=== PATIENT | male | born 1960 ===

== ENCOUNTER 2017-11-23 05:50 | Inpatient (IN) | payer OTHER ==
[~2017-11-23] VITALS: Ht 177.8 cm; Wt 73.5 kg
[2017-11-23] VITALS (12 sets, daily range): BP systolic 56–119; BP diastolic 31–76
[~2017-11-23 05:50] MED LIST: Dexamethasone 20mg/5ml IVP ONE; ceFAZolin sod 1 GM in NS 55 ML IVPB ONE
[2017-11-23] MEDS ORDERED: PROSCAR5 MG ORAL (06:31)
[2017-11-23] MEDS ORDERED: EPINEPHrine 1mg/1ml Amp ONE (06:38)
[2017-11-23] MEDS ORDERED: Vancomycin 1gm inj IVPB ONE (06:38)
[2017-11-23] MEDS ORDERED: Lidocaine 1% Plain 30 ml INJ ONE ×3 (06:39→09:02)
[2017-11-23] MEDS ORDERED: Thrombin 5000 units TOPIC ONE (06:39)
[2017-11-23] MEDS ORDERED: Bupivacaine 0.5% Inj 30 ml vial INJ ONE (06:39)
[2017-11-23] MEDS ORDERED: Bacitracin 50000 Units Vial ONE (06:39)
[2017-11-23] MEDS ORDERED: Gelfoam Size TOPIC ONE (06:39)
[2017-11-23] MEDS ORDERED: LR 1000ml 1,000 ML IVLG SCH (06:54)
--- NOTE | 2017-11-23 06:56 | Anethesia Preoperative Eval ---
Anesthesia Pre-op PMH/ROS General Date of Evaluation: Nov 23, 2017 Time of Evaluation: 07:01 Anesthesiologist: Juan M ASA Score: ASA 2 Mallampati Score Class I : Soft palate, uvula, fauces, pillars visible Class II: Soft palate, uvula, fauces visible Class III: Soft palate, base of uvula visible Class IV: Only hard plate visible Mallampati Classification: Class I Surgeon: Allyson Diagnosis: Back Pain Surgical Procedure: L5-S1 Microdiscectomy, Decompression Anesthesia History: none Social History: smoking Family History: no anesthesia problems Allergies: Coded Allergies: No Known Allergies (Unverified , 11/23/17) Medications: see eMAR Past Medical History Musculoskeletal/Integumentary: Reports: OA PSxH Narrative: L Shoulder Sx, Femur Sx, Quad Tendon Sx Anesthesia Pre-op Phys. Exam Physician Exam Last Vital Signs Date Time Temp Pulse Resp B/P (MAP) Pulse Ox O2 Delivery O2 Flow Rate FiO2 11/23/17 06:41 Room Air 11/23/17 06:32 97.9 45 18 119/74 (89) 99 97.9 Constitutional: NAD Neurologic: CN 2-12 intact Cardiovascular: RRR Respiratory: CTA Gastrointestinal: S/NT/ND Airway Exam Mallampati Score: Class II MO: full ROM: full Teeth: intact Anesthesia Pre-op A/P Risk Assessment & Plan Assessment: ASA 2 Plan: GA, BIS, GlideScope Status Change Before Surgery: No Pre-Antibiotics Dru Gram Ancef IV Given Within 1 Hr of Incision: Yes Time Given: 07:31 Dmitri Mcgowan MD Nov 23, 2017 06:56
[2017-11-23] MEDS ORDERED: Sodium Chloride 10ml vial INJ ONE (06:57)
[2017-11-23] MEDS ORDERED: Lidocaine 1% MPF 10mg/ml 5ml ONE (06:57)
[2017-11-23] MEDS ORDERED: Labetalol 5mg/ml 20ml vial IV PRN (07:00)
[2017-11-23] MEDS ORDERED: Norco 5mg/325mg tab ORAL PRN (07:00)
[2017-11-23] MEDS ORDERED: LORazepam Inj 2mg/ml 1ml IV PRN (07:00)
[2017-11-23] MEDS ORDERED: Neostigmine 1mg/ml 10ml Inj ONE (07:00)
[2017-11-23] MEDS ORDERED: Acetaminophen (Non formulary) 100 ML IV ONE (07:00)
[2017-11-23] MEDS ORDERED: Sterile Water Irrig 1000ml IRRIG ONE (07:00)
[2017-11-23] MEDS ORDERED: HYDROcodone/Acetamin 7.5/325 tab ORAL PRN (07:00)
[2017-11-23] MEDS ORDERED: Midazolam 2mg/2ml Inj IVP PRN (07:00)
[2017-11-23] MEDS ORDERED: oxyCODONE HCL/Acetaminophen 5/325mg ORAL PRN (07:00)
[2017-11-23] MEDS ORDERED: Hydromorphone 0.5mg/0.5ml inj IVP PRN (07:00)
[2017-11-23] MEDS ORDERED: DiphenhydrAMINE 50mg/ml Inj IVP PRN (07:00)
[2017-11-23] MEDS ORDERED: Metoclopramide 10mg/2ml Inj IVP PRN (07:00)
[2017-11-23] MEDS ORDERED: Propofol 1,000mg/ 100ml btl IV ONE (07:00)
[2017-11-23] MEDS ORDERED: Zemuron 50mg/5ml Inj IV ONE (07:00)
[2017-11-23] MEDS ORDERED: fentaNYL 100 mcg/2 mL IV PRN (07:00)
[2017-11-23] MEDS ORDERED: Glycopyrrolate 0.2mg/ml 1ml Vial ONE ×3 (07:00→09:16)
[2017-11-23] MEDS ORDERED: LR 1000ml ONE (07:00)
[2017-11-23] MEDS ORDERED: Ketorolac 30mg Inj IV PRN ×2 (07:00)
[2017-11-23] MEDS ORDERED: Atropine Inj 1mg/10ml Syr IV PRN (07:00)
--- NOTE | 2017-11-23 07:03 | Pre-Procedure Note/Attestation ---
Pre-Procedure Note/Attestation Complete Prior to Procedure Planned Procedure: not applicable Procedure Narrative: L5-S1 microdiscectomy Indications for Procedure Pre-Operative Diagnosis: Trauma L5-S1 herniated nucleus pulposis, radiculopathy, pain, neurological deficit Attestation I attest that I discussed the nature of the procedure; its benefits; risks and complications; and alternatives (and the risks and benefits of such alternatives ), prior to the procedure, with the patient (or the patient's legal mechanical service representative). I attest that, if there was a reasonable possibility of needing a blood transfusion, the patient (or the patient's legal mechanical service representative) was given the [place] Department [employer] standardized written summary, pursuant to the [place] Blood Safety Act ([place] Health and Safety Code # 1645, as amended). I attest that I re-evaluated the patient just prior to the surgery and that there has been no change in the patient's H&P, except as documented below: ELISEO ARELLANO Nov 23, 2017 07:03
--- NOTE | 2017-11-23 07:46 | Immediate Post-Op Evaluation ---
Immediate Post-Op Evalulation Immediate Post-Op Evalulation Procedure: L5-S1 Microdiscectomy, Decompression Date of Evaluation: Nov 23, 2017 Time of Evaluation: 10:00 IV Fluids: 700 LR Blood Products: 0 Estimated Blood Loss: 10 Urinary Output: 0 Blood Pressure Systolic: 99 Blood Pressure Diastolic: 66 Pulse Rate: 92 Respiratory Rate: 16 O2 Sat by Pulse Oximetry: 100 Temperature (Fahrenheit): 98 Pain Score (1-10): 3 Nausea: No Vomiting: No Complications 0 Patient Status: awake, reacts, patent, extubated, none Hydration Status: adequate Dru Gram Ancef IV Given Within 1 Hr of Incision: Yes Time Given: 07:31 Dmitri Mcgowan MD Nov 23, 2017 07:46
[2017-11-23] MEDS ORDERED: NS Irrig 1000ml IRRIG ONE (08:30)
--- NOTE | 2017-11-23 09:23 | Brief Operative Note ---
Immediate Post Operative Note Operative Note Pre-op Diagnosis: Trauma L5-S1 herniated nucleus pulposis, radiculopathy, pain, neurological deficit Procedure: L5-S1 microdiscectomy Local Xray High power dissection Post-op Diagnosis: same as pre-op Findings: consistent w/pre-op dx studies Surgeon: Allyson JARAMILLO Field Crop Grower: Verito MUNGUIA Anesthesiologist: Juan M JARAMILLO Anesthesia: general Specimen: yes Complications: none Condition: stable Fluids: anesthesia Estimated Blood Loss: minimal Drains: none Implant(s) used?: No ELISEO ARELLANO Nov 23, 2017 09:23
[2017-11-23] MEDS ORDERED: fentaNYL 100 mcg/2 mL IV ONE (09:24)
[2017-11-23] MEDS ORDERED: Naloxone 0.4mg/ml Inj IVP PRN (09:30)
--- NOTE | 2017-11-23 10:54 | Diagnostic Imaging Report ---
Indication: Pain, intraoperative Technique: Intraoperative imaging Comparison: none Findings: Intraoperative images demonstrate needle posterior to what is presumably L5, intervertebral tool posterior to what is presumably L5-S1 Impression: Intraoperative imaging, as described
[2017-11-23] MEDS ORDERED: D5 1/2NS 1,000 ML IV SCH (12:00)
--- NOTE | 2017-11-23 13:30 | Operative Note - Dictated ---
DATE OF OPERATION: 11/23/2017 9:26 a.m. SURGEON: Rboles Valadez, PhD, M.D. CREDIT PORTFOLIO ADVISOR: EZRA Vazquez. ANESTHESIOLOGIST: Dmitri Mcgowan M.D. ANESTHESIA: General with intubation. 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 POSTOPERATIVE DIAGNOSIS: L5-S1 posttraumatic herniated nucleus polyposis with radiculopathy/neurologic deficit. OPERATIVE PROCEDURE: L5-S1 microdiscectomy. High-power magnification dissection. Local anesthetic applied by surgeon. Intraoperative x-rays interpreted by surgeon. COMPLICATIONS: None. SPECIMEN: Disc fragments to pathology. POSTOPERATIVE CONDITION: Good/stable. DESCRIPTION OF PROCEDURE: The patient was brought to the operating room, supine position, general anesthesia with intubation, carefully turned prone position, lumbodorsal spine sterilely prepped. Spinal needle under sterile conditions, placed into the subcutaneous tissue and a cross-table image obtained under sterile conditions, interpreted by surgeon, demonstrating the correct level for incision placement. Position marked. Needle removed. Back re-sterilely prepped and draped free in usual sterile fashion. A longitudinal midline incision of the appropriate interval was sharply placed through dermis and epidermis. Electrocautery dissection through the subcutaneous tissue to the level of lumbodorsal fascia. Lumbodorsal fascia incised right of midline only. Subperiosteal dissection over the lamina. Marker placed, cross-table imaging obtained. Under sterile conditions, interpreted by surgeons and marked appropriately for correct level for further dissection. Retractors placed. Hemilaminotomy right inferior L5 superior S1. Dissection was carried lateral to the dural tube, nerve root sheath. No dural tears or leaks at anytime during the procedure. Hemilaminotomy performed with Midas Jose M bur dissection under high-power magnification. Ligament flavum excision. Dissection carried lateral to the dural tube identification of the disc space. HNP identified. Annulotomy followed microdiscectomy not exceeding 11 mm posterior anterior, medial lateral, and lateral medial. No dural tears or leaks at anytime. Irrigation of disc space, no further fragments. Fragments previously removed to pathology. Wound irrigated with antibiotic-containing saline. Minimal epidural bleeding controlled with bipolar electrocauterization. Wound re-irrigated with antibiotic-containing saline. FloSeal applied. Sequential reapproximation with Vicryl suture material, lumbodorsal fascia, subcutaneous tissue, running subcuticular closure of dermis and epidermis. Local anesthetic 1% lidocaine with epinephrine. Bilateral and lateral aspects of the wound with local anesthetic. Surgical strips applied followed with sterile bandage, maintained in place with tape. The patient turned from the prone to supine position on the transport bed where he was awakened, extubated in the operating room, transported to postop recovery in good stable condition. Robles Valadez M.D. DR: MARIE JOB#: [id number] CC:
[2017-11-23] MEDS ORDERED: Tamsulosin 0.4mg cap ORAL ONE (13:59)
[2017-11-23] MEDS ORDERED: Morphine Sulfate 4mg/ml Inj (IV USE ONLY) IV PRN (14:00)
[2017-11-23] MEDS ORDERED: HYDROcodone/Acetamin 10/325 tab ORAL PRN (14:00)
[2017-11-23] MEDS ORDERED: Chloraseptic Spray 20mL Bottle ORAL PRN (14:00)
[2017-11-23] MEDS ORDERED: Tamsulosin 0.4mg cap ORAL SCH (14:07)
[2017-11-23] MEDS ORDERED: Morphine Sulfate 4mg/ml Inj (IV USE ONLY) IV SCH (14:08)
[2017-11-23] MEDS ORDERED: ceFAZolin sod 1 GM in D5W 55 ML IV SCH (16:00)
[2017-11-23] MEDS ORDERED: Docusate 100mg/10ml Liq NG SCH (18:00)
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
[2017-11-24 08:09] VITALS: BP 122/56
--- NOTE | 2017-11-24 08:09 | 48 Hour Post Anesthesia Eval ---
Post Anesthesia Evaluation Procedure: L5-S1 Microdiscectomy, Decompression Date of Evaluation: Nov 24, 2017 Blood Pressure Systolic: 122 0: 56 Pulse Rate: 72 Respiratory Rate: 20 Temperature (Fahrenheit): 97.6 O2 Sat by Pulse Oximetry: 98 Airway: patent Nausea: No Vomiting: No Pain Intensity: 3 Hydration Status: adequate Cardiopulmonary Status: stable Mental Status/LOC: patient returned to baseline Follow-up Care/Observations: n/a Post-Anesthesia Complications: none Follow-up care needed: ready to discharge Dipak Becker MD Nov 24, 2017 08:09
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
== END 2017-11-23 19:00 | disposition home or self-care (01) | DRG 520 ==
LOC: SUR 05:50 → 3E 11:45
PROC: 0SB40ZZ Excision of Lumbosacral Disc, Open Approach (ICD-10-PCS; principal; 2017-11-23 07:00)
DX: M51.17 Intervertebral disc disorders with radiculopathy, lumbosacral region (principal); V89.2XXS Person injured in unspecified motor-vehicle accident, traffic, sequela; Z88.6 Allergy status to analgesic agent; Z87.891 Personal history of nicotine dependence
CPT/HCPCS: 72020; 76001; 94003; 94150; J2405; J2710